=== PATIENT | male | born 1935 | race Caucasian/White ===

== ENCOUNTER 2017-12-24 06:14 | Day surgery (SDC) | payer BC ==
[2017-12-23 12:14] VITALS: BMI 19.9
--- NOTE | 2017-12-23 15:46 | HP ---
- Patient Scheduled date of Surgery: 12/24/17 Scheduled Surgical Procedure: Phacoemulsification and cataract extraction with PCIOL Affected Eye: Left Chief Complaint (Indication for surgery): Decreased vision affecting ADLs - Ocular History Other Eye History: Other (CRS OD with amblyopia , MILD ARMD OS) Eye Medications: vigamox Previous Eye Surgery: none - Medical History Illnesses: Other (lung CA s/p excision , GERD, PVD, COPD) Current Medications: Ambulatory Orders Albuterol Sulfate [Proair Respiclick] 2 puff IH QID PRN 12/23/17 Cholecalciferol (Vitamin D3) [Vitamin D3 -] 2,000 unit PO DAILY 12/23/17 Pantoprazole Sodium 40 mg PO DAILY 12/23/17 Tiotropium [place] [Spiriva] 18 mcg IH DAILY 12/23/17 Allergies/Adverse Reactions: Allergies Allergy/AdvReac Type Severity Reaction Status Date / Time No Known Allergies Allergy Verified 12/23/17 12:25 Ocular Examination - Best Corrected Visual Acuity Distance: Right eye: CF Distance: Left eye: 20/80 - External/Slit Lamp Examination Abnormalities: none - Intraocular Pressure Intraocular Pressure - Right eye: 11 Intraocular Pressure-Left eye: 11 - Lens Lens: 2+ NS, 3+ cortical - Vitreous/Retina Vitreous/Retina: c:d 0.2 m/v/p wnl - Special Examination M - Right eye: -1.50 -0.75 x 69 M - Left eye: -0.50 K - Right eye: 44/45.25 x 150 K - Left eye: 43.75/45.75 x 175 AL - Right eye: 24.27 AL - Left eye: 23.13 IOL bag: +20.0 d hoya 251 IOL sulcus: +19.5 d hoya 231 IOL AC: +16.5 d MTA 4uo - Impression Impression: Cataract Left Eye - Plan Plan: Phacoemulsification and cataract extraction - IOL Left eye Post-hospital care will be provided in office on: 12/25/17
[~2017-12-24 06:14] MED LIST: TOBRAMYCIN/DEXAMETHASONE OPHTH. OINTMENT 1 TUBE OS ONE
[2017-12-24] MEDS ORDERED: FLURBIPROFEN 0.03% OPHTH SOLN 2.5 ML BOTTLE ONE (06:29)
[2017-12-24] MEDS ORDERED: TROPICAMIDE 0.5% OPHTHALMIC SOLN 15 ML BOTTLE ONE (06:29)
[2017-12-24] MEDS ORDERED: PHENYLEPHRINE 2.5% OPHTH SOLN 15 ML BOTTLE ONE (06:30)
[2017-12-24] MEDS ORDERED: CIPROFLOXACIN 0.3% EYE DROPS 5 ML BOTTLE ONE (06:30)
[2017-12-24] MEDS ORDERED: PHENYLEPHRINE 2.5% OPHTH SOLN 15 ML BOTTLE OP SCH (06:45)
[2017-12-24] MEDS ORDERED: DICLOFENAC SODIUM 0.1% OPHTHALMIC 2.5ML BOTTLE OP SCH (06:45)
[2017-12-24] MEDS ORDERED: TROPICAMIDE 1% OPHTH SOLN 15 ML BOTTLE OP SCH (06:45)
[2017-12-24] MEDS ORDERED: CIPROFLOXACIN HCL 0.3% OPHTH 2.5ML BOTTLE OP SCH (06:45)
[2017-12-24 06:54] VITALS: TEMP 97.8
[2017-12-24] MEDS ORDERED: FLURBIPROFEN 0.03% OPHTH SOLN 2.5 ML BOTTLE OS ONE ×3 (07:00→07:26)
[2017-12-24] MEDS ORDERED: CIPROFLOXACIN HCL 0.3% OPHTH 2.5ML BOTTLE OS ONE ×3 (07:00→07:26)
[2017-12-24] MEDS ORDERED: TROPICAMIDE 1% OPHTH SOLN 15 ML BOTTLE OS ONE ×3 (07:00→07:26)
[2017-12-24] MEDS ORDERED: FLURBIPROFEN 0.03% OPHTH SOLN 2.5 ML BOTTLE OP SCH (07:00)
[2017-12-24] MEDS ORDERED: PHENYLEPHRINE 2.5% OPHTH SOLN 15 ML BOTTLE OS ONE ×3 (07:00→07:26)
--- NOTE | 2017-12-24 07:17 | HP ---
History & Physical Update - History History: No Change - Physical Physical: No Change - Assessment Assessment: No Change - Plan Plan: No Change (Reviewed Nils Mcintosh's note from 12/17/17, no changes)
[2017-12-24] MEDS ORDERED: LIDOCAINE HCL 2% JELLY (5 ML/TUBE) ONE (07:32)
[2017-12-24] MEDS ORDERED: EPINEPHrine/PF 1 MG/1 ML (1:1,000) AMPULE ONE (07:32)
[2017-12-24] MEDS ORDERED: BSS (NA/CA/MG/K) BALANCED SALT SOLUTION OPHTH SOLN 15 ML BOTTLE ONE (07:33)
[2017-12-24] MEDS ORDERED: LIDOCAINE HCL/PF 1% SDV 5ML VIAL ONE (07:33)
[2017-12-24] MEDS ORDERED: POVIDONE-IODINE 5% OPHTHALMIC PREP 30 ML SOLUTION ONE (07:33)
[2017-12-24] MEDS ORDERED: TRYPAN BLUE 0.5 ML DISP.SYRIN ONE (07:38)
[2017-12-24] MEDS ORDERED: ePHEDrine SULFATE 50 MG/1 ML AMPULE ONE (07:46)
[2017-12-24] MEDS ORDERED: PROPOFOL 20 ML ONE (07:47)
[2017-12-24] MEDS ORDERED: SUCCINYLCHOLINE CHLORIDE 200 MG/10 ML VIAL ONE (07:47)
[2017-12-24] MEDS ORDERED: MIDAZOLAM HCL 2 MG/2 ML SINGLE DOSE VIAL ONE (07:47)
[2017-12-24] MEDS ORDERED: LIDOCAINE HCL 2% JELLY (5 ML/TUBE) TP ONE (07:50)
[2017-12-24] MEDS ORDERED: POVIDONE-IODINE 5% OPHTHALMIC PREP 30 ML SOLUTION OS ONE (07:53)
[2017-12-24] MEDS ORDERED: ACETAMINOPHEN 325 MG TABLET (FP) PO PRN (08:00)
[2017-12-24] MEDS ORDERED: BSS (NA/CA/MG/K) BALANCED SALT SOLUTION OPHTH SOLN 15 ML BOTTLE OS ONE (08:00)
[2017-12-24] MEDS ORDERED: CHONDROITIN SU A/HYALUR SOD 1 KIT IO ONE (08:00)
[2017-12-24] MEDS ORDERED: LIDOCAINE HCL 1% PRESERVATIVE FREE - 30ML VIAL IO ONE (08:00)
[2017-12-24] MEDS ORDERED: EPINEPHrine/PF 1 MG/1 ML (1:1,000) AMPULE SQ ONE (08:08)
[2017-12-24] MEDS ORDERED: TOBRAMYCIN/DEXAMETHASONE OPHTH. OINTMENT 1 TUBE OS ONE (08:22)
--- NOTE | 2017-12-24 08:33 | OP ---
Ophthalmology Operative Note Pre-Operative Diagnosis: Cataract (cortical) Affected Eye: Left Operation: Phacoemulsification and cataract extraction with PCIOL Findings: cortical cataract left eye Char Conveyor Tender Cellar: None Anesthesiologist: Tate Gunn Anesthesia: Topical Specimens Removed: none Estimated blood loss: none Drains & Tubes with Location: none Operative Report Dictated: Yes
--- NOTE | 2017-12-24 08:54 | OP ---
DATE OF OPERATION: DATE OF DICTATION: 12/24/2017 PREOPERATIVE DIAGNOSIS: Cortical cataract, left eye. POSTOPERATIVE DIAGNOSIS: Cortical cataract, left eye. PROCEDURE: Phacoemulsification and cataract extraction with insertion of posterior chamber intraocular lens, left eye. SURGEON: Jacki Workman MD HAZMAT CDL A DRIVER: None. ANESTHESIA: Topical. DIRECTOR PRODUCT DEVELOPMENT: Tate Gunn CRNA OPERATIVE PROCEDURE: The patient received viscous lidocaine gel 2% and then was gently sedated and prepped and draped in the usual sterile fashion so as to expose only the left eye. Ophthalmic Betadine was instilled into the inferior fornix. The lashes were taped out of the surgical field. An eyelid speculum was placed into the left eye. Paracentesis was made in inferior clear cornea at the limbus. Nonpreserved lidocaine 1%, 0.5 mL, was injected into the anterior chamber. Viscoelastic material was instilled into the anterior chamber via the paracentesis. A 2.4-mm keratome was then used to create the main incision in temporal clear cornea at the limbus. A continuous curvilinear capsulorrhexis was performed using a cystotome and Utrata forceps. Hydrodissection of the lens cortex was performed using BSS on a cannula until the nucleus was noted to be freely rotating. The phacoemulsification tip was then inserted via the main wound and used to sculpt 2 perpendicular grooves into the lens nucleus. The nucleus was cracked into 4 quadrants using 2 instruments. Each quadrant was lifted out of the capsule into the iris plane and individually phacoemulsified. The remaining cortical material was aspirated using the irrigation and aspiration port. The capsular bag was inflated using Provisc and a preloaded Hoya lens model 251, power +20.0 diopters was injected into the capsular bag and centered using a Sinskey hook. The residual viscoelastic material was removed from the anterior chamber using irrigation and aspiration. The wound edges were hydrated using BSS. The wound was tested for leakage and was found to be watertight. TobraDex ointment was placed in the eye and the speculum was removed from the eye and a sterile dressing and shield were placed over the eye and the patient was transferred to the recovery room in stable condition. Told to follow up in 1 day. JACKI WORKMAN M.D. [id number]
[2017-12-24 09:33] VITALS: BP 139/56; PULSE 74
== END 2017-12-24 09:20 | disposition home or self-care (01) ==
LOC: JASU-SURG 06:14
PROVIDERS: ATTEND Ophthalmology
PROC: 08RK3JZ Replacement of Left Lens with Synthetic Substitute, Percutaneous Approach (ICD-10-PCS; principal; 2017-12-24 07:30)
DX: H26.9 Unspecified cataract (principal)

== ENCOUNTER 2018-11-25 09:04 | Day surgery (SDC) | payer BC, OTHER ==
[2018-11-24 08:59] VITALS: BMI 19.5
--- NOTE | 2018-11-25 07:34 | HP ---
- Patient Scheduled date of Surgery: 11/25/18 Scheduled Surgical Procedure: Phacoemulsification and cataract extraction with PCIOL Affected Eye: Right Chief Complaint (Indication for surgery): Decreased vision affecting ADLs - Ocular History Other Eye History: Other (ARMD dry, CRS OS, Amblyopia OD, blepharitis) Eye Medications: vigamox Previous Eye Surgery: s/p ce/pciol OS - Medical History Illnesses: Other (GERD, LUng CA s/p excsion) Current Medications: Ambulatory Orders Albuterol Sulfate [Proair Respiclick] 2 puff IH QID PRN 12/23/17 Cholecalciferol (Vitamin D3) [Vitamin D3 -] 2,000 unit PO DAILY 12/23/17 Pantoprazole Sodium 40 mg PO DAILY 12/23/17 Tiotropium [place] [Spiriva] 18 mcg IH DAILY 12/23/17 Allergies/Adverse Reactions: Allergies Allergy/AdvReac Type Severity Reaction Status Date / Time No Known Allergies Allergy Verified 12/23/17 12:25 Ocular Examination - Best Corrected Visual Acuity Distance: Right eye: CF Distance: Left eye: 20/30 - External/Slit Lamp Examination Abnormalities: decreased TBUT - Intraocular Pressure Intraocular Pressure - Right eye: 12 Intraocular Pressure-Left eye: 12 - Lens Lens: 2+ NS 4+ cortical change, 1+ PSC - Vitreous/Retina Vitreous/Retina: c:d 0.2 m : elevated scar, v/p wnl - Special Examination M - Right eye: -1.50-0.75 x 070 M - Left eye: +0.50-1.75 x 85 K - Right eye: 43.75/45.5 x 155 K - Left eye: 44/45.75 x 165 AL - Right eye: 24.27 AL - Left eye: 23.13 IOL bag: +17.5 AUOOTO IOL sulcus: +16.5 MN50AC IOL AC: +14.5 MTA4uo - Impression Impression: Cataract Right Eye (cortical, mature) - Plan Plan: Phacoemulsification and cataract extraction - IOL Right eye Post-hospital care will be provided in office on: 11/26/18
--- NOTE | 2018-11-25 07:35 | HP ---
History & Physical Update - History History: No Change - Physical Physical: No Change - Assessment Assessment: No Change - Plan Plan: No Change (Reviewed H and P by Dr. Bass from 11/12/18 no changes)
[~2018-11-25 09:04] MED LIST changes: +ACETAMINOPHEN 325 MG TABLET (FP) PO PRN; +CIPROFLOXACIN HCL 0.3% OPHTH 2.5ML BOTTLE OP SCH; +KETOROLAC TROMETHAMINE 0.5% EYE DROP 1 DROP DROPS OP SCH; +PHENYLEPHRINE 2.5% OPHTH SOLN 15 ML BOTTLE OP SCH; -TOBRAMYCIN/DEXAMETHASONE OPHTH. OINTMENT 1 TUBE OS ONE; +TROPICAMIDE 1% OPHTH SOLN 15 ML BOTTLE OP SCH
[2018-11-25] MEDS ORDERED: CIPROFLOXACIN HCL 0.3% OPHTH 2.5ML BOTTLE ONE (09:33)
[2018-11-25] MEDS ORDERED: TROPICAMIDE 0.5% OPHTHALMIC SOLN 15 ML BOTTLE ONE (09:33)
[2018-11-25] MEDS ORDERED: KETOROLAC TROMETHAMINE 0.5% EYE DROP 1 DROP DROPS ONE (09:36)
[2018-11-25] MEDS ORDERED: MIDAZOLAM HCL 2 MG/2 ML SINGLE DOSE VIAL ONE (11:02)
[2018-11-25] MEDS ORDERED: TETRACAINE 0.5% OPHTH SOLN 2 ML BOTTLE OD ONE (11:04)
[2018-11-25] MEDS ORDERED: POVIDONE-IODINE 5% OPHTHALMIC PREP 30 ML SOLUTION OD ONE (11:05)
[2018-11-25] MEDS ORDERED: TRYPAN BLUE 0.5 ML DISP.SYRIN IO ONE (11:13)
[2018-11-25] MEDS ORDERED: CHONDROITIN SU A/HYALUR SOD 1 KIT IO ONE (11:13)
[2018-11-25] MEDS ORDERED: BSS (NA/CA/MG/K) BALANCED SALT SOLUTION OPHTH SOLN 15 ML BOTTLE OD ONE (11:13)
[2018-11-25] MEDS ORDERED: LIDOCAINE HCL 1% PRESERVATIVE FREE - 30ML VIAL IO ONE (11:13)
[2018-11-25] MEDS ORDERED: EPINEPHrine/PF 1 MG/1 ML (1:1,000) AMPULE SQ ONE (11:20)
[2018-11-25] MEDS ORDERED: TOBRAMYCIN/DEXAMETHASONE OPHTH. OINTMENT 1 TUBE OD ONE (11:35)
--- NOTE | 2018-11-25 11:40 | OP ---
Ophthalmology Operative Note Pre-Operative Diagnosis: Mature cataract (cortical cataract) Affected Eye: Right Operation: Phacoemulsification and cataract extraction with PCIOL Findings: mature, cortical cataract OD Post-Operative Diagnosis: Same as Pre-op Inside Barrel Polisher: None Anesthesiologist: Prema De Anda MD Anesthesia: Topical Specimens Removed: none Estimated blood loss: < 1cc Drains & Tubes with Location: none Operative Report Dictated: Yes
[2018-11-25 12:23] VITALS: BP 155/69; PULSE 78; TEMP 97.8
--- NOTE | 2018-11-26 06:57 | OP ---
DATE OF OPERATION: 11/25/2018 PREOPERATIVE DIAGNOSIS: Cortical cataract, right eye. POSTOPERATIVE DIAGNOSIS: Mature cortical cataract. PROCEDURE: Phacoemulsification and cataract extraction with insertion of posterior chamber intraocular lens, right eye, using trypan blue. SURGEON: Jacki Workman MD MANAGER FLIGHT OPERATIONS: None. ANESTHESIA: Topical. ANESTHESIOLOGIST: Prema De Anda MD OPERATIVE PROCEDURE: The patient received tetracaine eye drops, and then was given intravenous sedation, and then prepped and draped in the usual sterile fashion, so as to expose only the right eye. Ophthalmic Betadine was instilled into the inferior fornix, and the lashes were taped out of the surgical field. An eyelid speculum was placed into the right eye. A paracentesis was made in superotemporal clear cornea at the limbus. Nonpreserved lidocaine 1%, 0.5 mL, was injected into the anterior chamber. An air bubble was injected into the anterior chamber, and trypan blue was dripped on the anterior capsular edge. Viscoelastic material was instilled into the anterior chamber via the paracentesis. A 2.4-mm keratome was then used to create the main incision in temporal clear cornea at the limbus. A continuous curvilinear capsulorrhexis was performed using a cystotome and Utrata forceps. Hydrodissection of the lens cortex was performed using BSS on a cannula until the nucleus was noted to be freely rotating. The phacoemulsification tip was then inserted via the main wound and used to sculpt 2 perpendicular grooves into the lens nucleus. The nucleus was cracked into 4 quadrants. Each quadrant was lifted out of the capsule into the iris plane and individually phacoemulcified. The remaining cortical material was then aspirated using the irrigation and aspiration port. The capsular bag was inflated using Provisc and a preloaded AcrySof lens, model [id number], power +18.0 diopters was injected into the capsular bag and centered using a Sinskey hook. The residual viscoelastic material was removed from the anterior chamber using irrigation and aspiration. The wound edges were hydrated using BSS. The wound was tested for leakage. It was found to be watertight. TobraDex ointment was placed in the eye, and the speculum was removed from the eye, and the eyelid was closed. Sterile dressing and shield were placed over the eye, and the patient was transferred to the recovery room in stable condition, told to follow up in 1 day. JACKI WORKMAN M.D. [id number]
== END 2018-11-25 12:24 | disposition home or self-care (01) ==
LOC: JASU-SURG 09:04
PROVIDERS: ATTEND Ophthalmology
PROC: 08RJ3JZ Replacement of Right Lens with Synthetic Substitute, Percutaneous Approach (ICD-10-PCS; principal; 2018-11-25 10:30)
DX: H26.9 Unspecified cataract (principal)